=== PATIENT | female | born 1940 | race Caucasian/White ===

== ENCOUNTER 2021-01-17 10:48 | Emergency (ER) | payer OTHER, SELFPAY ==
[2021-01-17 10:52] VITALS: BP 160/79; PULSE 77; RESP 16; TEMP 37.1; O2SAT 98
--- NOTE | 2021-01-17 11:07 | ED.GENADUL_ITS ---
Discharge Plan Disposition Patient Disposition: HOME Condition: Good Discharge Details Clinical Impression: Foot fracture, right, Metatarsal bone fracture Primary Care Provider: Silvana,Local ED Provider: Jadiel Wheeler Home Meds and New Rx's Prescriptions: Continued Januvia 100 mg Tablet 100 mg PO DAILY RF: 0 sulfamethoxazole-trimethoprim [Bactrim DS] 800-160 mg Tablet 0.5 tab PO DAILY RF: 0 simvastatin 40 mg Tablet 40 mg PO DAILY RF: 0 losartan 25 mg Tablet 25 mg PO DAILY RF: 0 cholecalciferol (vitamin D3) [Vitamin D3] 50 mcg (2,000 unit) Tablet 50 mcg PO DAILY RF: 0 Discharge Instructions Instructions: Foot Fracture in Adults (ED) Additional Instructions: At this time it does appear to be a very small fracture in your foot. Please use the walking boot as directed. I would recommend using it for the next 3 to 4 weeks or until symptoms improve/resolve if you need additional support you can utilize crutches to help reduce the impact of weight on your foot. Please continue to take naproxen as needed for pain control. If you notice any worsening of your symptoms, or any new symptoms such as vomiting, diarrhea, fever, chills, shortness of breath, chest pain, numbness, weakness, or fainting , please return immediately to the emergency department for reevaluation. Please follow up with your primary care provider as soon as possible for reassessment and reevaluation. As always, it was a pleasure participating in your medical care today. Medical Decision Making 80-year-old female presents today for evaluation of right foot pain. Patient has been diagnosed with plantar fasciitis which she has been managing outpatient, however yesterday she had an episode where she rolled her right ankle off some angle concrete. Since then she has had a mild amount of pain in the midfoot region as well as in the tib-fib region. She did not fall, she did not hit it hard. She denies any other trauma. She denies any numbness or tingl ing. No other complaints at this time. She is taking naproxen to help with pain. Pain is made worse with movement and palpation. Exam demonstrates tenderness over the dorsal aspect of the midfoot region, mild. Mild swelling in this area as well. Good flexion extension of toes and movement otherwise. Patient is able to ambulate without significant limp. Mild passive tenderness in the tib-fib generalized, but no focal tenderness over the fibular head, the tibial plateau or any other component. Suspect just ligamentous issues for this pain, but concern for potential fracture for the foot. We will get x-rays, monitor closely and reassess 12:02 PM No fracture of the tibia or fibula, questionable small fracture of the distal fourth metatarsal. Will give walking boot for support as needed. Recommend continued NSAIDs. Discussed red flags which to return. I have extensively reviewed the treatment plan and discharge instructions with the patient. I have addressed all patient concerns at this time. The patient was made aware of what symptoms to monitor for that would warrant a return to the emergency department. Discussed the plan with the patient, they demonstrate verbal understanding and agreement with our assessment and plan at this time. The documentation in this chart was dictated using [employer] dictation software. Please excuse any dictation errors. FINDINGS: BONES: No acute fracture is present. No bony destructive lesion is seen. Visualized portion of knee and ankle joints are unremarkable. SOFT TISSUE: Normal. IMPRESSION: Unremarkable radiographs of the right tibia and fibula. FINDINGS: BONES: There is a question of a nondisplaced fracture at the neck of the 4th metatarsal. This is suggested on the dorsal plantar view.. No bony destructive lesion is seen. Bones appear osteopenic. JOINTS: No dislocation present. SOFT TISSUE: Normal. IMPRESSION: Question of a fracture of the distal 4th metatarsal. HPI General Date/Time Provider Initiated Documentation: 01/17/21 10:56 . HPI Narrative: 80-year-old female presents today for evaluation of right foot pain. Patient has been diagnosed with plantar fasciitis which she has been managing outpatient, however yesterday she had an episode where she rolled her right ank le off some angle concrete. Since then she has had a mild amount of pain in the midfoot region as well as in the tib-fib region. She did not fall, she did not hit it hard. She denies any other trauma. She denies any numbness or tingling. No other complaints at this time. She is taking naproxen to help with pain Related Data Home Medications Medication Instructions Recorded Confirmed Januvia 100 mg PO DAILY 01/17/21 01/17/21 cholecalciferol (vitamin D3) 50 mcg PO DAILY 01/17/21 01/17/21 [Vitamin D3] losartan 25 mg PO DAILY 01/17/21 01/17/21 simvastatin 40 mg PO DAILY 01/17/21 01/17/21 sulfamethoxazole-trimethoprim 0.5 tab PO DAILY 01/17/21 01/17/21 [Bactrim DS] Allergies Allergy/AdvReac Type Severity Reaction Status Date / Time No Known Allergies Allergy Unverified 01/17/21 10:57 General Stated Complaint: Orthopedic JAQUI: 4 Review of Systems All systems reviewed & are unremarkable except as noted in HPI and below PFSH Social History Smoking/Tobacco Use Status: Never Smoking risk assessment performed?: Yes Alcohol Intake: never Do you feel safe at home: Yes Exam Narrative Exam Narrative: 1.Const: Well-nourished, Well-developed, appearing stated age 2.Eyes: PERRL, no conjunctival injection, and symmetrical lids. 3.ENT: Atraumatic external nose and ears. Moist MM. Neck: Symmetric, trachea midline, No thyromegaly. 4.CVS: +S1/S2, No murmurs or gallops. Peripheral pulses 2+ and equal in all extremities. Brisk capillary refill in all extremities. 5.RESP: Unlabored respiratory effort. Clear to auscultation bilaterally. No wheezes rales or rhonchi 6.GI: Soft, Nontender/Nondistended, No hepatosplenomegaly. No guarding or rebound. 7.MSK: Normocephalic, Extremities w/o deformity, No cyanosis or clubbing, Normal movement of all extremities. Exam of the right foot demonstrates a small amount of swelling and tenderness over the dorsal aspect of the midfoot region. Mild tenderness over this area. Described as the distal second third and fourth metatarsal region. Patient demonstrates good flexion and extension of toes, good sensation, good capillary refill, normal dorsalis pedis pulse. Minimal generalized tenderness over the tib/fib, however no focal area of tenderness. No evidence of tenderness over the tibial plateau. 8.Skin: Warm, Dry. No rashes or lesions. 9.Neuro: automatic glove former II-XII grossly intact. Sensation grossly intact, no focal neurologic deficits. 10.Psych: (AAO) x3. Appropriate mood and affect Course Vital Signs Vital signs: Vital Signs Temperature 37.1 C 01/17/21 10:52 Pulse 77 01/17/21 10:52 Respiratory Rate 16 01/17/21 10:52 Blood Pressure 160/79 H 01/17/21 10:52 Pulse Oximetry 98 01/17/21 10:52 Temperature 37.1 C 01/17/21 10:52 Temperature Source Skin 01/17/21 10:52 Pulse 77 01/17/21 10:52 Respiratory Rate 16 01/17/21 10:52 Blood Pressure 160/79 H 01/17/21 10:52 Blood Pressure Position Sitting 01/17/21 10:52 Pulse Oximetry 98 01/17/21 10:52 Oxygen Delivery Method Room Air 01/17/21 10:52 Oxygen Flow Rate 0 01/17/21 10:52 Pain Level 8 01/17/21 10:52 Comment 01/17/21 10:52
--- NOTE | 2021-01-17 11:49 | DI.RAD_ITS ---
Exam(s) XR TIB/FIB RT EXAM: XR TIB/FIB RT CLINICAL HISTORY: pain in general tib fib region after fall. TECHNIQUE: 2D digital imaging was performed. COMPARISON: No exams were available for comparison FINDINGS: BONES: No acute fracture is present. No bony destructive lesion is seen. Visualized portion of knee a nd ankle joints are unremarkable. SOFT TISSUE: Normal. IMPRESSION: Unremarkable radiographs of the right tibia and fibula. DATA REPOSITORY: RADIATION DOSE DELIVERED:
--- NOTE | 2021-01-17 11:49 | DI.RAD_ITS ---
Exam(s) XR FOOT RT COMPLETE EXAM: XR FOOT RT COMPLETE CLINICAL HISTORY: pain in right midfoot region after fall. TECHNIQUE: 2D digital imaging was performed. COMPARISON: No exams were available for comparison FINDINGS: BONES: There is a question of a nondisplaced fracture at the neck of the 4th metatarsal. This is sug gested on the dorsal plantar view.. No bony destructive lesion is seen. Bones appear osteopenic. JOINTS: No dislocation present. SOFT TISSUE: Normal. IMPRESSION: Question of a fracture of the distal 4th metatarsal. DATA REPOSITORY: RADIATION DOSE DELIVERED:
== END 2021-01-17 12:21 | disposition home or self-care (01) ==
PROVIDERS: Emergency Provider Student in an Organized Health Care Education/Training Program
DX: S92.341A Displaced fracture of fourth metatarsal bone, right foot, initial encounter for closed fracture (principal); M79.661 Pain in right lower leg; X50.9XXA Other and unspecified overexertion or strenuous movements or postures, initial encounter
CPT/HCPCS: 28470; 99281; 73590; 73630